=== PATIENT | female | born 1950 | race Caucasian/White ===

== ENCOUNTER 2023-11-17 16:00 | Outpatient (CLI) | payer MEDICARE | END 2023-11-17 16:01 | disposition home or self-care (01) | LOC: SLEEPLAB 16:00 | PROVIDERS: ATTEND Internal Medicine | DX: G47.33 Obstructive sleep apnea (adult) (pediatric) (principal); G47.61 Periodic limb movement disorder | CPT/HCPCS: 95811 ==

== ENCOUNTER 2024-09-07 10:38 | Outpatient (CLI) | payer MEDICARE | END 2024-09-07 10:39 | disposition home or self-care (01) | LOC: SCSRAD 10:38 | PROVIDERS: ATTEND Family Medicine | DX: M54.2 Cervicalgia (principal); M47.812 Spondylosis without myelopathy or radiculopathy, cervical region | CPT/HCPCS: 72040 ==